=== PATIENT | male | born 1990 | race African-American/Black ===

== ENCOUNTER 2016-12-01 12:13 | Emergency (ER) | payer MEDICAID ==
[~2016-12-01] VITALS: Ht 182.9 cm; Wt 79.0 kg
[2016-12-01] MEDS ORDERED: SODIUM CHLORIDE 0.9% 1,000 ML IV ONE (15:15)
[2016-12-01] MEDS ORDERED: CLINDAMYCIN 600 MG in DEXTROSE 5% WATER 50 ML IV ONE (15:15)
[2016-12-01] MEDS ORDERED: MORPHINE SULFATE 4 MG/ML CPJ (NOT FOR IM USE) IV ONE ×2 (15:15→16:30)
[2016-12-01] MEDS ORDERED: ONDANSETRON 4MG ODT PO ONE (15:15)
[2016-12-01] MEDS ORDERED: KETOROLAC 15MG/ML VIAL IV ONE (17:30)
[2016-12-01 17:57] VITALS: BP 126/82
== END 2016-12-01 18:00 | disposition home or self-care (01) ==
LOC: EDBD 12:13 → ER 15:21
DX: L03.116 Cellulitis of left lower limb (principal); J45.909 Unspecified asthma, uncomplicated; F17.210 Nicotine dependence, cigarettes, uncomplicated; F12.10 Cannabis abuse, uncomplicated; Z88.6 Allergy status to analgesic agent
CPT/HCPCS: 73630; 96361; 96365; 96366; 96375; 96376; 99285; J2270; J3490; J7030; Q0162; Z7610; J7060